=== PATIENT | female | born 2000 | race Caucasian/White ===

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

== ENCOUNTER 2018-11-17 21:44 | Emergency (ER) | payer SELFPAY ==
[~2018-11-17] VITALS: Ht 172.7 cm; Wt 72.6 kg
[2018-11-17 21:49] VITALS: BP_SYST 130
--- NOTE | 2018-11-17 21:52 | NUR ---
Patient to ER bed 08 to gown for evaluation. Side rails up.
--- NOTE | 2018-11-17 21:59 | NUR ---
Pt BIB family to ED C/O constant, nonradiating 02/15, pain to the right buttocks which she describes as a swollen sensation since yesterday. Pt states that the pain has progressively worsened. No other injuries and or complaints noted. VSS no s/s of acute distress. Resting on gurney with rails up
--- NOTE | 2018-11-17 22:10 | NUR ---
Dr. Hernandez bedside for Pt eval
[2018-11-17] MEDS ORDERED: BACITRACIN 1 GM OINT TP ONE (22:15)
[2018-11-17] MEDS ORDERED: LIDOCAINE 1% 10 MG/ML, 20 ML MDV IJ ONE (22:15)
--- NOTE | 2018-11-17 22:51 | NUR ---
Dr. Hernandez bedside for I&D procedure. Pt in stable condition
--- NOTE | 2018-11-17 23:00 | NUR ---
Pt tolerating procedure well, with VSS.
[2018-11-18] VITALS: BP_SYST 122
--- NOTE | 2018-11-18 | NUR ---
Patient given written and verbal discharge instructions and verbalizes understanding. ER MD discussed with patient the results and treatment provided. Patient in stable condition. ID arm band removed. Rx of Keflex and Naproxin given. Patient educated on pain management and to follow up with PMD. Pain Scale 0/10. Opportunity for questions provided and answered. Medication side effect fact sheet provided.
== END 2018-11-18 | disposition home or self-care (01) ==
LOC: SED 21:44
DX: K61.1 Rectal abscess (principal); Z90.49 Acquired absence of other specified parts of digestive tract
CPT/HCPCS: 46050; 99284; J2001

== ENCOUNTER 2018-11-20 13:34 | Emergency (ER) | payer MEDICAID ==
[~2018-11-20] VITALS: Ht 172.7 cm; Wt 72.6 kg
[2018-11-20 13:45] VITALS: BP_SYST 140
[2018-11-20] MEDS ORDERED: LIDOCAINE/EPI 1% 1:100000 20 ML VIAL INJ ONE (14:30)
[2018-11-20 15:00] VITALS: BP_SYST 140
== END 2018-11-20 15:00 | disposition home or self-care (01) ==
LOC: SED 13:34
DX: L02.31 Cutaneous abscess of buttock (principal); R03.0 Elevated blood-pressure reading, without diagnosis of hypertension
CPT/HCPCS: 99283

== ENCOUNTER 2018-11-23 16:06 | Emergency (ER) | payer MEDICAID ==
[~2018-11-23] VITALS: Ht 172.7 cm; Wt 72.6 kg
[2018-11-23 16:14] VITALS: BP_SYST 124
[2018-11-23] MEDS ORDERED: BACITRACIN 1 GM OINT TP ONE (17:00)
[2018-11-23 17:14] VITALS: BP_SYST 117
== END 2018-11-23 17:14 | disposition home or self-care (01) ==
LOC: SED 16:06
DX: K64.4 Residual hemorrhoidal skin tags (principal); R03.0 Elevated blood-pressure reading, without diagnosis of hypertension
CPT/HCPCS: 81025; 99283

== ENCOUNTER 2022-06-07 21:10 | Emergency (ER) | payer MEDICAID ==
[~2022-06-07] VITALS: Ht 170.2 cm; Wt 95.3 kg
[2022-06-07 21:15] VITALS: BP_SYST 116
[2022-06-07] MEDS ORDERED: IBUPROFEN 600 MG TABLET PO ONE (22:45)
[2022-06-07] MEDS ORDERED: IBUP-1969 PO (23:15)
[2022-06-08 00:38] VITALS: BP_SYST 125
== END 2022-06-08 00:38 | disposition home or self-care (01) ==
LOC: SED 21:10
DX: S09.90XA Unspecified injury of head, initial encounter (principal); Z79.899 Other long term (current) drug therapy; Y04.0XXA Assault by unarmed brawl or fight, initial encounter; Y93.89 Activity, other specified; Y92.89 Other specified places as the place of occurrence of the external cause; Y99.8 Other external cause status
CPT/HCPCS: 70486-TC; 76376; 99284